=== PATIENT | female | born 1960 | race Caucasian/White ===

== ENCOUNTER 2024-08-25 08:04 | Day surgery (SDC) | payer OTHER ==
[2024-08-19 10:21] LABS: Absolute Eosinophils 0.2 K/uL (0-0.5); Absolute Monocytes 1.3 K/uL (0.1-1.3); Absolute Neutrophil 4.8 K/uL (1.8-8.0); Basophils % 0.4 % (0-1.3); Eosinophils % 1.8 % (0-4.4); Hematocrit 40.4 % (36.0-45.0); Hemoglobin 13.6 g/dL (12.0-15.0); MCH 28.8 pg (27.0-35.0); MCHC 33.7 g/dL (32.0-36.0); MCV 85.3 fL (80-100); MPV 8.7 fL (7.6-11.3); Monocytes % 12.4 % (3.3-12.3); Neutrophils % 46.4 % (41.7-73.7); Nucleated RBC Absolute Count 0.1 (0-0); Nucleated Red Blood Cells % 0.5 % (0-0); Platelets 373 thou/uL (152-406); RBC Red Blood Cell Count 4.74 M/uL (3.86-4.86); Red Cell Distribution Width 14.2 % (12.1-15.2)
[2024-08-19 10:25] LABS: PTT, Activated Partial Thromb 28.6 SECONDS (24.3-36.9); Protime INR 1.05
--- NOTE | 2024-08-19 10:30 | RAD REPORT ---
EXAM: Chest Pa And Lat (2 Views) HISTORY: 64 years Female Pre-op pending left knee arthroplasty COMPARISON: None. FINDINGS: LUNGS/PLEURA: The lungs are clear. No pleural effusions or pneumothorax. No pulmonary edema. MEDIASTINUM: The mediastinal silhouette is within normal limits CARDIAC: The cardiac silhouette is within normal limits. UPPER ABDOMEN: No significant abnormality. BONES: No acute abnormality. LINES/TUBES/OTHER: Pacemaker present. IMPRESSION: No evidence of acute cardiopulmonary disease.
[2024-08-19 10:33] LABS: Anion Gap 13.7 mEq/L (5.0-15.0); Potassium 3.7 mEq/L (3.5-5.1)
--- NOTE | 2024-08-23 12:18 | EKG ---
Test Date: 2024-08-19 Test Time: 10:39:07 Bookseamer Blindstitch: RHINA MEASUREMENT RESULTS: Intervals: Rate: 74 IL: 154 QRSD: 72 QT: 384 QTc: 426 [place]: P: 66 IL: 154 QRS: 24 T: 88 INTERPRETIVE STATEMENTS: Normal sinus rhythm Normal ECG No previous ECG available for comparison Electronically Signed On 08-23-24 12:13:03 FIXED INCOME MANAGER by Suleiman Alicia
[2024-08-25] MEDS: ACETAMINOPHEN 500 MG TAB ONE (08:52)
[2024-08-25] MEDS: Oxycodone HCl/Acetaminophen 5/325 MG TAB ONE (08:52)
[2024-08-25] MEDS: GABAPENTIN 100 MG CAP ONE (08:52)
[2024-08-25] MEDS: CELECOXIB 100 MG CAPSULE ONE (08:52)
[2024-08-25] MEDS: NA CHLORIDE 0.9% 1,000 ML ONE ×2 (09:00→12:45)
[2024-08-25] MEDS: LIDOCAINE 1% MPF 5 ML VIAL ONE (09:30)
[2024-08-25] MEDS: dexAMETHasone 10 MG/ML VIAL ONE (09:30)
[2024-08-25] MEDS: MIDAZOLAM HCL 2 MG/2 ML INJ ONE (09:31)
[2024-08-25] MEDS: EPINEPHRINE 1 MG/ML VIAL ONE (09:31)
[2024-08-25] MEDS: FENTANYL CITR 100 MCG/2 ML ONE (09:31)
[2024-08-25] MEDS: BUPIVACAINE 0.25% PF 30 ML VIAL ONE (09:31)
[2024-08-25] MEDS: TRANEXAMIC ACID 1,000 MG/10 ML VIAL IV ONE (10:07)
[2024-08-25] MEDS ORDERED: propofoL 200 MG/20 ML VIAL IV ONE (10:23)
[2024-08-25] MEDS ORDERED: ONDANSETRON 4 MG/2 ML VIAL ONE (10:23)
[2024-08-25] MEDS ORDERED: LIDOCAINE 2% MPF 5 ML VIAL ONE (10:23)
[2024-08-25] MEDS: DEXMEDETOMIDINE HCL 200 MCG/2 ML VIAL ONE (10:24)
[2024-08-25] MEDS: MAGNESIUM SULFATE 1 gm IVPB 1 GM/100 ML BAG IV ONE (10:24)
[2024-08-25] MEDS ORDERED: ROCURONIUM 50 MG/5 ML VIAL IV ONE (11:06)
[2024-08-25] MEDS ORDERED: EPHEDRINE SULF 50 MG/ML VIAL ONE (11:11)
[2024-08-25] MEDS ORDERED: dexAMETHasone 10 MG/ML VIAL ONE (11:21)
[2024-08-25] MEDS ORDERED: KETAMINE HCL IN 0.9 % NACL 50 MG/5 ML SYRINGE IV ONE (11:21)
[2024-08-25] MEDS: CEFAZOLIN SODIUM 2 GM/VIAL ONE (11:21)
[2024-08-25] MEDS ORDERED: GLYCOPYRROLATE 0.2 MG/ML SYR ONE (11:28)
--- NOTE | 2024-08-25 13:31 | P.BOP ---
Preoperative diagnosis: Left knee osteoarthritis Postoperative diagnosis: Same Primary procedure: Left total knee arthroplasty Supervisor Malted Milk: General Estimated blood loss: 40 cc Specimen: Left knee bone remnants Findings: See dictation Anesthesia: General Complications: None Implants: Biomet Mari persona 6 CR femur, D tibia, 10 CR poly, 29 patella Fluids & blood products: Per anesthesia record; tourniquet time 59 minutes at 300 mmHg Transferred to: Recovery Room Condition: Good
[2024-08-25] MEDS ORDERED: ACETAMINOPHEN 325 MG TABLET PO PRN (13:32)
[2024-08-25] MEDS ORDERED: DOCUSATE NA 100 MG CAP PO PRN (13:32)
--- NOTE | 2024-08-25 14:04 | RAD REPORT ---
EXAMINATION: XR LEFT KNEE CLINICAL INDICATION: Post Op TECHNIQUE: Multiple projections of the left knee were obtained. COMPARISON: No prior exam. FINDINGS: Postoperative changes of a left total knee arthroplasty. Skin krys are noted on the midl ine. Small amount of gas is present in the joint. No immediate unexpected postoperative finding.
[2024-08-25 14:18] LABS: Hematocrit 32.6 % (36.0-45.0)
[2024-08-25 14:41] VITALS: O2SAT 99
[2024-08-25 16:41] VITALS: BMI 30.1
[2024-08-25] MEDS: CEFAZOLIN SODIUM 2 GM in NA CHLORIDE 0.9% 100 ML IVPB SCH (17:21)
[2024-08-25] MEDS: METFORMIN HCL 500 MG TAB PO SCH (17:22)
[2024-08-25] MEDS: CETIRIZINE HCL 5 MG TABLET PO SCH (20:34)
[2024-08-25] MEDS: ATORVASTATIN 40 MG TAB PO SCH (20:34)
[2024-08-25] MEDS: EZETIMIBE 10 MG TAB PO SCH (20:34)
[2024-08-25] MEDS: HYDROCODONE/APAP 7.5/325 MG TAB PO PRN (20:35)
[2024-08-25] MEDS ORDERED: [UNRECOGNIZED DRUG - REMARK] PO SCH (21:00)
[2024-08-26] MEDS: ENOXAPARIN 30 MG/0.3 ML SQ SCH (05:35)
[2024-08-26 06:41] LABS: Hematocrit 31.4 % (36.0-45.0); Hemoglobin 10.5 g/dL (12.0-15.0)
--- NOTE | 2024-08-26 07:52 | P.OP ---
Preoperative diagnosis: Left knee osteoarthritis Postoperative diagnosis: Same Primary procedure: Left total knee arthroplasty Anesthesia: General Estimated blood loss: 40 cc Specimen: Left knee bone remnants Findings: See dictation Operative Technique: Indication For Procedure: Shazia is a 64 year-old female presenting to my clinic with signs, symptoms and x-ray findings consistent with severe left knee osteoarthritis. I discussed with the patient at length risks and benefits associated with operative and nonoperative treatment. She had failed conservative treatment measures and had significant difficulties with ADLs secondary to her pain. We discussed operative treatment and elected to proceed with left total knee arthroplasty. She expressed understanding and elected to proceed with operative treatment. Description Of Procedure: After informed consent was obtained, the patient was identified in the preoperative holding area. The left lower extremity was marked. The patient was then taken to the PACU where she underwent a left lower extremity adductor canal block performed by Anesthesia. She was then taken to the operating room, transferred to the operating table in supine fashion, and placed under general anesthesia. The left lower extremity was then prepped and draped in usual sterile fashion. A time-out was initiated. The correct patient and procedure were confirmed and identified. The patient did receive her preoperative prophylactic antibiotics. The left lower extremity was then exsanguinated and tourniquet was inflated to 300 mmHg. Approximately 15 cm longitudinal incision was made centered over the anterior aspect of the left knee. Dissection was then taken to the extensor mechanism and a medial parapatellar arthrotomy was performed. The patella was everted and dislocated laterally and the knee was flexed in the fat pad. Medial and lateral meniscus and ACL were all excised exposing the distal femur. Excess hypertrophic syn ovium was also excised within the suprapatellar pouch. The patient had a CT scan of her left knee preoperatively for surgical planning and creation of cutting blocks. The cutting block was then placed over the distal femur and pins were then placed. The distal femoral cutting block was then placed over the pins. An abdulaziz wing was then used to ensure proper depth cut and the distal femur was then cut. The chamfer cutting guide was then placed over the distal end of the femur. Anterior, posterior cuts as well as anterior and posterior chamfer cuts were then made again confirming proper depth of the cut using an Abdulaziz wing. Excess bone remnants were then sent to pathology for further evaluation. Next, attention was taken to the proximal tibia. A tibial jig and tibial cutting block was then placed on proximal aspect of the left tibia and locked into position. Pins were then placed and alignment guide was then used to confirm proper alignment of the cut and then coronal and sagittal planes. Once this was confirmed, the cutting jig was placed over the pins and the proximal tibia was cut. Sizing trays were then selected and size 10 mm spacer was used and there was good overall balance in flexion and extension. Next, the trial implants were then placed using the size 6 standard CR femur and a size D tibia and an 10 mm CR poly. There was overall good range of motion and good stability. The trial implants were then removed. The wound was then irrigated thoroughly with normal saline and the knee was then injected with 20 cc of 0.5% Marcaine both in the posterior capsule and medial and lateral gutters as well as quadriceps tendon and periosteum. The tibia was then punched. The femur was drilled. The cement was then prepared on the back table. Cement was then p laced first on the tibial surface followed by size D tibia. Excess cement was removed with [place] elevators. Size 6 standard CR femur was then placed on the distal femur after cement was placed on the distal femur. Excess cement was then removed and a size 10 mm CR trial poly was then placed. The knee was held in extension as the cement hardened. Undersurface of the patella was prepared debriding osteophytes using rongeurs as well as osteophytes.. Cement was placed on the undersurface of the patella after it was cut and a size 29 patella was placed. Once the cement was hardened, the knee was ranged, there was good overall stability both in flexion, extension and as well as stability with varus and valgus stresses. Trial poly was then removed and a size 10 mm CR poly was then placed and locked into position. The knee was then ranged again. There was good overall range of motion both for flexion and extension with good stability. The wound was then irrigated again thoroughly with normal saline using pulse lavage. Tourniquet was let down. Hemostasis was achieved using Bovie electrocautery. Extensor mechanism was then approximated using a #1 Vicryl both in interrupted and running fashion. The fascia was then approximated using 0 Vicryl. Subcutaneous tissue was approximated with a 2-0 Vicryl. Skin was approximated using krys. Sterile dressings were applied. The patient was awakened and transferred back in stable condition. Complications: None Implants: Biomet Mari persona 6 CR femur, D tibia, 10 CR poly, 29 patella Fluids & blood products: Per anesthesia record; tourniquet time 59 minutes at 300 mmHg Transferred to: Recovery Room Condition: Good
[2024-08-26] MEDS: PANTOPRAZOLE 40MG TABLET PO SCH (08:27)
[2024-08-26] MEDS: hydroCHLOROthiazide 12.5 MG CAP PO SCH (08:57)
[2024-08-26] MEDS: lisinopriL 10 MG TAB PO SCH (08:58)
[2024-08-26] MEDS: FUROSEMIDE 20 MG TABLET PO SCH (08:58)
[2024-08-26] MEDS: METOPROLOL XL 25 MG TAB PO SCH (08:58)
[2024-08-26] MEDS ORDERED: HOME MED 1 EA UNK (Lisinopril/Hydrochlorothiazide [Lisinopril-Hctz 10-12.5 Mg Tab] Tablet) PO SCH (09:00)
[2024-08-26] MEDS ORDERED: HOME MED 1 EA UNK (Omeprazole [Prilosec] 40 MG Capsule.Dr) PO SCH (09:00)
[2024-08-26] MEDS: SEMAGLUTIDE 7 MG PO SCH (09:00)
[2024-08-26] MEDS ORDERED: HOME MED 1 EA UNK (Potassium Chloride [Klor-Con] 20 MEQ Packet) PO SCH (09:00)
[2024-08-26] MEDS: POTASSIUM CL SA 10 MEQ TAB PO SCH (09:24)
[2024-08-26] MEDS: CELECOXIB 100 MG CAPSULE PO SCH (09:24)
[2024-08-26] MEDS: TRAMADOL HCL 50 MG TAB PO PRN (09:24)
[2024-08-26 12:05] VITALS: BP 105/49; TEMP 97.8
== END 2024-08-26 13:32 | disposition home health service (06) ==
LOC: OR 08:04 → 4TH 13:32 → OR 08-26 13:32
PROVIDERS: ATTEND Orthopaedic Surgery Sports Medicine
PROC: 0SRD0J9 Replacement of Left Knee Joint with Synthetic Substitute, Cemented, Open Approach (ICD-10-PCS; principal; 2024-08-25 11:00)
DX: M17.12 Unilateral primary osteoarthritis, left knee (principal)
CPT/HCPCS: 27447; 93005; 85025; 80048; 36415 ×3; 85610; 82947 ×4; 88305; 88311; 85730; 85018 ×2; 85014 ×2; 71046; 73560; 97116 ×2; 97139; 97161; 97530; 94010; C1776; J3475; J2704; J2003 ×2; J1650 ×2; J2250; J3010; J1100 ×2; J0171; J2405; J7030 ×2

== ENCOUNTER 2025-04-20 06:00 | Day surgery (SDC) | payer OTHER ==
[2025-04-15 13:54] LABS: Absolute Lymphocytes (CBC) 3.0 K/uL (0.7-4.9); Hematocrit 39.6 % (36.0-45.0); Hemoglobin 12.7 g/dL (12.0-15.0); MCH 28.1 pg (27.0-35.0); MCHC 32.2 g/dL (32.0-36.0); MCV 87.2 fL (80-100); MPV 8.8 fL (7.6-11.3); Nucleated RBC Absolute Count 0.0 (0-0); Nucleated Red Blood Cells % 0.1 % (0-0); RBC Red Blood Cell Count 4.54 M/uL (3.86-4.86); White Blood Count 12.20 thou/uL (4.3-10.9)
[2025-04-15 14:07] LABS: PT Prothrombin Time 11.8 SECONDS (10-13.0); PTT, Activated Partial Thromb 25.1 SECONDS (27.2-37.4); Protime INR 1.05
[2025-04-15 14:10] LABS: Anion Gap 12.3 mEq/L (5.0-15.0); BUN Blood Urea Nitrogen 22.0 mg/dL (7-18); Glucose Level 99.0 mg/dL (74-106); Potassium 4.3 mEq/L (3.5-5.1)
--- NOTE | 2025-04-15 15:05 | RAD REPORT ---
EXAMINATION: TWO VIEW CHEST XR CLINICAL INDICATION: Female, 65 years old. [facility] Pre-op pending right knee arthroplasty TECHNIQUE: 2 view radiographs of the chest were performed. COMPARISON: 08/19/2024 FINDINGS: The lungs are well inflated and clear. No pneumothorax or sizable effusion. The heart is normal in si ze. Mediastinal contours are unremarkable. IMPRESSION: No acute or significant abnormalities.
[2025-04-20] MEDS: NA CHLORIDE 0.9% 1,000 ML ONE (06:40)
--- NOTE | 2025-04-20 10:23 | P.BOP ---
Preoperative diagnosis: Right knee osteoarthritis Postoperative diagnosis: Same Primary procedure: Right total knee arthroplasty List Of First Job Ideas: NONE,NONE Estimated blood loss: 40 cc Specimen: Right knee bone remnants Anesthesia: General Complications: None Implants: Biomet Mari persona 6 CR narrow femur, D tibia, 29 patella, 10 CR poly Fluids & blood products: Per anesthesia record Transferred to: Recovery Room Condition: Good
[2025-04-20] MEDS ORDERED: ACETAMINOPHEN 325 MG TABLET PO PRN (10:24)
--- NOTE | 2025-04-20 10:33 | P.OP ---
Preoperative diagnosis: Right knee osteoarthritis Postoperative diagnosis: Same Primary procedure: Right total knee arthroplasty Anesthesia: General Estimated blood loss: 40 cc Specimen: Right knee bone remnants Findings: See dictation Operative Technique: Indication For Procedure: Shazia is a 65 year-old female presenting to my clinic with signs, symptoms and x-ray findings consistent with severe right knee osteoarthritis. I discussed with the patient at length risks and benefits associated with operative and nonoperative treatment. She had failed conservative treatment measures and had significant difficulties with ADLs secondary to her pain. We discussed operative treatment and elected to proceed with right total knee arthroplasty. She expressed understanding and elected to proceed with operative treatment. Description Of Procedure: After informed consent was obtained, the patient was identified in the preoperative holding area. The right lower extremity was marked. The patient was then taken to the PACU where she underwent a right lower extremity adductor canal block performed by Anesthesia. She was then taken to the operating room, transferred to the operating table in supine fashion, and placed under general anesthesia. The right lower extremity was then prepped and draped in usual sterile fashion. A time-out was initiated. The correct patient and procedure were confirmed and identified. The patient did receive her preoperative prophylactic antibiotics. The right lower extremity was then exsanguinated and tourniquet was inflated to 300 mmHg. Approximately 15 cm longitudinal incision was made centered over the anterior aspect of the right knee. Dissection was then taken to the extensor mechanism and a medial parapatellar arthrotomy was performed. The patella was everted and dislocated laterally and the knee was flexed in the fat pad. Medial and lateral meniscus and ACL were all excised exposing the distal femur. Excess hypert rophic synovium was also excised within the suprapatellar pouch. The patient had a CT of her right knee preoperatively for surgical planning and creation of cutting blocks. The cutting block was then placed over the distal femur and pins were then placed. The distal femoral cutting block was then placed over the pins. An abdulaziz wing was then used to ensure proper depth cut and the distal femur was then cut. The chamfer cutting guide was then placed over the distal end of the femur. Anterior, posterior cuts as well as anterior and posterior chamfer cuts were then made again confirming proper depth of the cut using an Abdulaziz wing. Excess bone remnants were then sent to pathology for further evaluation. Next, attention was taken to the proximal tibia. A tibial jig and tibial cutting block was then placed on proximal aspect of the right tibia and locked into position. Pins were then placed and alignment guide was then used to confirm proper alignment of the cut and then coronal and sagittal planes. Once this was confirmed, the cutting jig was placed over the pins and the proximal tibia was cut. Sizing trays were then selected and size 10 mm spacer was used and there was good overall balance in flexion and extension. Next, the trial implants were then placed using the size 6 narrow CR femur and a size D tibia and a 10 mm CR poly. There was overall good range of motion and good stability. The trial implants were then removed. The wound was then irrigated thoroughly with normal saline and the knee was then injected with 20 cc of 0.5% Marcaine both in the posterior capsule and medial and lateral gutters as well as quadriceps tendon and periosteum. The tibia was then punched. The femur was drilled. The cement was then prepared on the back table. Cement was then placed first on the tibial surface followed by size D tibia. Excess cement was removed with [place] elevators. Size 6 narrow CR femur was then placed on the distal femur after cement was placed on the distal femur. Excess cement was then removed and a size 10 mm CR trial poly was then placed. The knee was held in extension as the cement hardened. Undersurface of the patella was prepared debriding osteophytes using rongeurs as well as osteophytes. Cement was placed on the undersurface of the patella after it was cut and a size 29 patella was placed. Once the cement was hardened, the knee was ranged, there was good overall stability both in flexion, extension and as well as stability with varus and valgus stresses. Trial poly was then removed and a size 10 mm CR poly was then placed and locked into position. The knee was then ranged again. There was good overall range of motion both for flexion and extension with good stability. The wound was then irrigated again thoroughly with normal saline using pulse lavage. Tourniquet was let down. Hemostasis was achieved using Bovie electrocautery. Extensor mechanism was then approximated using a #1 Vicryl both in interrupted and running fashion. The fascia was then approximated using 0 Vicryl. Subcutaneous tissue was approximated with a 2-0 Vicryl. Skin was approximated using krys. Sterile dressings were applied. The patient was awakened and transferred back in stable condition Complications: None Implants: Biomet Mari persona 6 narrow CR femur, D tibia, 29 patella, 10 CR poly Fluids & blood products: Per anesthesia record Transferred to: Recovery Room Condition: Good
[2025-04-20] MEDS: HYDROMORPHONE HCL 0.5 MG/0.5 ML INJ ONE ×2 (10:56→11:06)
[2025-04-20 11:15] LABS: Hematocrit 31.3 % (36.0-45.0); Hemoglobin 10.4 g/dL (12.0-15.0)
[2025-04-20 11:18] VITALS: O2SAT 99
--- NOTE | 2025-04-20 11:22 | RAD REPORT ---
EXAM: Knee Right 2 View INDICATION: Post Op COMPARISON: None FINDINGS: No acute fracture. Status post right knee arthroplasty. Gas within the knee joint which is not unexpected following surgery. Alignment is maintained. No hardware complications. Other: N/A IMPRESSION: Status post right knee arthroplasty without immediate hardware complications. No acute fr actures.
[2025-04-20 12:38] VITALS: BMI 28.8
[2025-04-20] MEDS: ONDANSETRON 4 MG/2 ML VIAL IV PRN (15:53)
[2025-04-20] MEDS: TRAMADOL HCL 50 MG TAB PO PRN (16:09)
[2025-04-20] MEDS: METFORMIN HCL 500 MG TAB PO SCH (17:55)
[2025-04-20] MEDS: CEFAZOLIN 1 GM in NA CHLORIDE 0.9% 50 ML IVPB SCH (17:55)
[2025-04-20] MEDS: EZETIMIBE 10 MG TAB PO SCH (20:59)
[2025-04-20] MEDS: ATORVASTATIN 40 MG TAB PO SCH (20:59)
[2025-04-20] MEDS: HYDROCODONE/APAP 7.5/325 MG TAB PO PRN (20:59)
[2025-04-21 04:42] LABS: Hematocrit 31.4 % (36.0-45.0); Hemoglobin 10.5 g/dL (12.0-15.0)
[2025-04-21] MEDS: ENOXAPARIN 30 MG/0.3 ML SQ SCH (05:14)
[2025-04-21] MEDS: PANTOPRAZOLE 40MG TABLET PO SCH (07:56)
[2025-04-21] MEDS: Multi-VIT(Centravite Senior) 1 TAB TAB PO SCH (08:55)
[2025-04-21] MEDS: FUROSEMIDE 20 MG TABLET PO SCH (08:56)
[2025-04-21] MEDS: POTASSIUM CL SA 10 MEQ TAB PO SCH (08:56)
[2025-04-21] MEDS: CELECOXIB 100 MG CAPSULE PO SCH (08:58)
[2025-04-21] MEDS: METOPROLOL XL 25 MG TAB PO SCH (08:59)
[2025-04-21 09:28] VITALS: BP 112/59; TEMP 97.6
== END 2025-04-21 10:25 | disposition home health service (06) ==
LOC: OR 06:00 → 2ND 10:24 → OR 04-21 10:25
PROVIDERS: ATTEND Orthopaedic Surgery Sports Medicine
PROC: 0SRC0J9 Replacement of Right Knee Joint with Synthetic Substitute, Cemented, Open Approach (ICD-10-PCS; principal; 2025-04-20 08:00)
DX: M17.11 Unilateral primary osteoarthritis, right knee (principal)
CPT/HCPCS: 93005; 85025; 80048; 36415 ×2; 85610; 82947 ×5; 88304; 88311; 85730; 85018; 85014; 71046; 73560; 97110; 97116; 97139; 97161; 97530; 94010 ×2; 27447; J1171 ×2; J2405; J7030; J0690; C1776 ×2; 88305; J1650